=== PATIENT | female | born 1940 | race Caucasian/White ===

== ENCOUNTER 2019-02-09 19:45 | Inpatient (IN) | payer OTHER, MEDICARE ==
[2019-02-09 19:51] VITALS: BMI 25.7
--- NOTE | 2019-02-09 19:52 | PDOC ---
Rapid Medical Evaluation Chief Complaint: Altered Mental Status Medical Evaluation: Allergies Allergy/AdvReac Type Severity Reaction Status Date / Time No Known Drug Allergies Allergy Verified 02/09/19 19:47 02/09/19 19:50 I have performed a brief in-person evaluation of this patient. The patient presents with chief complaint of change in behavior since Saturday. As per daughter has a history of uti and usually has change in behavior with uti Patient with loss of appetite, not eating or drinking since this am Pertinent physical exam findings NAD even and unlabored breathing slow cautious gait, emotional in triage alert to name I have ordered the following iv, labs The patient will proceed to the Ed for further evaluation Discharge Disposition - Diagnosis Altered mental status - Referrals - Patient Instructions - Post Discharge Activity
--- NOTE | 2019-02-09 21:33 | PDOC ---
Attending Attestation - HPI HPI: 02/09/19 22:11 The patient is a 78 year old female, with a significant past medical history of CVA (4yrs ago) and dementia, who presents to the emergency department with, AMS. As per daughter at bedside, patient has been more combative over the past 3 days. She notes the patient normally behaves this way when she has a UTI. Patient is a poor historian thus, history was obtained via daughter at bedside. Allergies: NKDA Primary Care Physician: Dr. Mcpherson - Physicial Exam PE: 02/09/19 22:11 Agree with resident exam. <Ba Zhao - Last Filed: 02/09/19 22:11> - Resident Resident Name: Nina Reed - ED Attending Attestation I have performed the following: I have examined & evaluated the patient, The case was reviewed & discussed with the resident, I agree w/resident's findings & plan - Medical Decision Making 02/09/19 22:19 78-year-old female with increasing aggressive behavior the last 3-4 days brought in for concerns of medical cause by her daughter who is her primary caregiver Head CT, labs, EKG, chest x-ray If medically cleared family states they are okay with taking the patient home Disposition pending results <Laureen Shabazz - Last Filed: 02/09/19 22:21> Attestations - Attestations 02/09/19 22:12 Documentation prepared by Ba Zhao, acting as medical office assistant for Laureen Shabazz DO. <Ba Zhao - Last Filed: 02/09/19 22:11>
--- NOTE | 2019-02-09 21:40 | PDOC ---
History of Present Illness <Deann Camarillo - Last Filed: 02/10/19 00:15> - History of Present Illness Initial Comments: 02/09/19 21:39 Patient is a 78 y/o female with a history of CVA ( 4.5 yrs ago) and dementia who presents for altered mental status. Most of history is per patients daughter. Patient has been altered for the last few days for between 4-5 hours. She has been combative and unruly. Patient has had episodes of AMS in the past which have been mostly found to be related to UTI's. Between August and October she has had 3-4 UTI's. In October she was started on UTI prophylaxis. Patient has only had a corn muffin for breakfast and did not drink water today or urinate. Patient does not urinate very frequently and never complains of burning with urination. Per family she did not fall. She waxes and wanes out of her dementia with her baseline sometimes A & O x2 and sometimes A& O x0. Patient currently only complains of headache. 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) COPD: No CHF: No Dementia: Yes (early) Diabetes: No GI Disorders: No Disorders: No HTN: No Hypercholesterolemia: No Liver Disease: No Psychiatric Problems: Yes (depression/anxiety) Seizures: No Thyroid Disease: No - Surgical History Appendectomy: Yes Neurologic Surgery: Yes (CRANIOTOMY TO RELIEVE PRESSURE) - Suicide/Smoking/Psychosocial Hx Smoking History: Former smoker Have you smoked in the past 12 months: No If you are a former smoker, when did you quit?: 15 years ago Information on smoking cessation initiated: No Hx Alcohol Use: No Drug/Substance Use Hx: No Substance Use Type: None Hx Substance Use Treatment: No <Nina Reed - Last Filed: 02/10/19 04:41> - Past Medical History Allergies/Adverse Reactions: Allergies Allergy/AdvReac Type Severity Reaction Status Date / Time No Known Drug Allergies Allergy Verified 02/09/19 19:51 Home Medications: Ambulatory Orders Amlodipine Besylate [Norvasc -] 2.5 mg PO DAILY #30 tablet 10/05/14 Memantine HCl [Namenda -] 5 mg PO DAILY #60 10/05/14 Metoprolol Succinate [Toprol XL -] 25 mg PO DAILY #30 tab.sr.24h 10/05/14 Pramipexole Di-HCl [Mirapex ER] 1.5 mg PO HS #30 10/05/14 Melatonin 5 mg PO HS 02/10/19 Mv-Mn/Lutein/Zeax/Bilber/Hb277 [Macular Health Formula Capsule] 1 each PO BID Paroxetine HCl 40 mg PO DAILY 02/10/19 Venlafaxine HCl ER [Effexor Xr -] 37.5 mg PO DAILY 02/10/19 Venlafaxine HCl ER [Effexor Xr -] 75 mg PO DAILY 02/10/19 levETIRAcetam [Keppra Oral Solution -] 250 mg PO BID 02/10/19 Review of Systems - Review of Systems Able to Perform ROS?: No (patient dementia ) <Nina Reed - Last Filed: 02/10/19 04:41> *Physical Exam - Vital Signs Last Vital Signs Temp Pulse Resp BP Pulse Ox 98.2 F 78 20 135/81 96 02/09/19 19:48 02/09/19 19:48 02/09/19 19:48 02/09/19 19:48 02/09/19 19:48 <Deann Camarillo - Last Filed: 02/10/19 00:15> - Vital Signs Last Vital Signs Temp Pulse Resp BP Pulse Ox 98.2 F 78 20 135/81 96 02/09/19 19:48 02/09/19 19:48 02/09/19 19:48 02/09/19 19:48 02/09/19 19:48 - Physical Exam Comments: 02/09/19 21:50 GENERAL: Patient in distress, A& O x 1 HEART: RRR, no murmurs, rubs, or gallops LUNGS: CTAL B/L ABD: mildly tender, normoactive bowel sounds EXTREMITIES: 1+ pitting edema SKIN: no rashes or lesions noted <Nina Reed - Last Filed: 02/10/19 04:41> Moderate Sedation - Procedure Monitoring Vital Signs: Procedure Monitoring Vital Signs Temperature 98.2 F 02/09/19 19:48 Pulse Rate 78 02/09/19 19:48 Respiratory Rate 20 02/09/19 19:48 Blood Pressure 135/81 02/09/19 19:48 O2 Sat by Pulse Oximetry (%) 96 02/09/19 19:48 <Deann Camarillo - Last Filed: 02/10/19 00:15> - Procedure Monitoring Vital Signs: Procedure Monitoring Vital Signs Temperature 98.2 F 02/09/19 19:48 Pulse Rate 78 02/09/19 19:48 Respiratory Rate 20 02/09/19 19:48 Blood Pressure 135/81 02/09/19 19:48 O2 Sat by Pulse Oximetry (%) 96 02/09/19 19:48 <Nina Reed - Last Filed: 02/10/19 04:41> ED Treatment Course - LABORATORY CBC & Chemistry Diagram: 02/09/19 22:40 02/09/19 22:40 - ADDITIONAL ORDERS Additional order review: Laboratory Results 02/09/19 02/09/19 02/09/19 22:40 22:40 21:31 PT with INR 11.90 INR 1.01 PTT (Actin FS) 25.9 Sodium 143 Potassium 3.8 Chloride 111 H Carbon Dioxide 26 Anion Gap 6 L BUN 31 H Creatinine 1.1 Creat Clearance w eGFR 48.29 Random Glucose 89 Calcium 8.8 Total Bilirubin 0.5 AST 44 H ALT 23 Alkaline Phosphatase 52 Troponin I < 0.02 Total Protein 5.8 L Albumin 3.3 L Urine Color Yellow Urine Appearance Slcloudy Urine pH 5.0 Ur Specific [place] 1.020 Urine Protein 1+ H Urine Glucose (UA) Negative Urine Ketones 1+ H Urine Blood Negative Urine Nitrite Negative Urine Bilirubin Negative Urine Urobilinogen 2.0 H Ur Leukocyte Esterase 1+ H Urine WBC (Auto) 25 Urine RBC (Auto) 2 Ur Epithelial Cells Few Urine Mucus Rare 02/09/19 22:40 RBC 3.80 MCV 95.2 MCHC 34.6 RDW 13.5 MPV 8.4 Neutrophils % 62.2 D Lymphocytes % 25.3 D Monocytes % 9.8 D Eosinophils % 1.9 D Basophils % 0.8 D - Medications Given in the ED: ED Medications Discontinued Medications Generic Name Dose Route Start Last Admin Trade Name Lalo PRN Reason Stop Dose Admin Acetaminophen 1,000 mg 02/09/19 21:43 02/09/19 22:46 Ofirmev Injection - IVPB 02/09/19 21:44 1,000 mg ONCE ONE Administration <Deann Camarillo - Last Filed: 02/10/19 00:15> - LABORATORY CBC & Chemistry Diagram: 02/09/19 22:40 02/09/19 22:40 <Nina Reed - Last Filed: 02/10/19 04:41> *DC/Admit/Observation/Transfer - Discharge Dispostion Decision to Admit order: Yes <Deann Camarillo - Last Filed: 02/10/19 00:15> <Nina Reed - Last Filed: 02/10/19 04:41> Diagnosis at time of Disposition: Altered mental status Qualifiers: Altered mental status type: unspecified Qualified Code(s): R41.82 - Altered mental status, unspecified UTI (urinary tract infection) Qualifiers: Urinary tract infection type: acute cystitis Hematuria presence: without hematuria Qualified Code(s): N30.00 - Acute cystitis without hematuria - Discharge Dispostion Condition at time of disposition: Guarded
[2019-02-09] MEDS ORDERED: ACETAMINOPHEN 1000 MG/100 ML VIAL (NON FORMULARY) IVPB ONE (21:43)
[2019-02-09 22:00] LABS: URINE APPEARANCE SLCLOUDY; URINE BILIRUBIN NEGATIVE (<2.0 mg/dL); URINE COLOR YELLOW; URINE GLUCOSE (UA) NEGATIVE (NEGATIVE); URINE KETONE 1+ (NEGATIVE); URINE LEUK ESTERASE 1+ (NEGATIVE); URINE NITRITE NEGATIVE (NEGATIVE); URINE PROTEIN 1+ (NEGATIVE)
[2019-02-09 22:05] LABS: EPI CELLS FEW /HPF (FEW); URINE MUCUS RARE
[2019-02-09] MEDS ORDERED: ACETAMINOPHEN INJECTION 100 ML IVPB ONE (22:25)
[2019-02-09 22:47] LABS: BASO % 0.8 % (0-2.0); EOS % 1.9 % (0-4.5); HEMATOCRIT 36.2 % (32.4-45.2); HEMOGLOBIN 12.5 GM/dL (10.7-15.3); LYMPH % 25.3 % (8-40); MCHC 34.6 g/dl (32.0-36.0); MEAN CELL VOLUME 95.2 fl (80-96); MEAN PLT VOLUME 8.4 fl (7.5-11.1); MONO % 9.8 % (3.8-10.2); NEUT % 62.2 % (42.8-82.8); PLATELET COUNT 228 K/MM3 (134-434); RDW 13.5 % (11.6-15.6); WHITE BLOOD COUNT 4.8 K/mm3 (4.0-10.0)
[2019-02-09 22:58] LABS: INR 1.01 (0.83-1.09); PROTHROMBIN TIME (PATIENT) 11.9 SEC (9.7-13.0)
[2019-02-09 23:02] LABS: ACTIVATED PTT 25.9 SECONDS (25.2-36.5)
[2019-02-09 23:12] LABS: ALBUMIN 3.3 g/dl (3.4-5.0); ALK PHOS 52 U/L (45-117); ANION GAP 6 MMOL/L (8-16); BILIRUBIN,TOTAL 0.5 mg/dL (0.2-1); BLOOD UREA NITROGEN 31 mg/dL (7-18); CALCIUM 8.8 mg/dL (8.5-10.1); CHLORIDE 111 mmol/L (98-107); CO2 26 mmol/L (21-32); CREATININE 1.1 mg/dL (0.55-1.3); GLUCOSE,RANDOM 89 mg/dL (74-106); POTASSIUM 3.8 mmol/L (3.5-5.1); SGOT/AST 44 U/L (15-37); SGPT/ALT 23 U/L (13-61); SODIUM 143 mmol/L (136-145); TOT PROT 5.8 g/dl (6.4-8.2)
[2019-02-10] MEDS ORDERED: CEFTRIAXONE 1 GM in DEXTROSE 5%-WATER - 100 ML IVPB ONE (00:07)
[2019-02-10] MEDS ORDERED: CEFTRIAXONE 1 GM/50 ML BAG ONE (00:39)
--- NOTE | 2019-02-10 02:22 | HP ---
Admitting History and Physical - Primary Care Physician PCP: Judy Mcpherson - Admission Chief Complaint: AMS History of Present Illness: This is a 78 y/o woman from home with a past medical history of CVA (4.5 yrs ago ), Dementia. Who presents to the ED with her daughter for AMS. Patient has Dementia and is unable to provide HPI, the daughter was not at bedside. Per ED records: Most of history is per patients daughter. Patient has been altered for the last few days for between 4-5 hours. She has been combative and unruly. Patient has had episodes of AMS in the past which have been mostly found to be related to UTI's. Between August and October she has had 3-4 UTI's. In October she was started on UTI prophylaxis. Patient has only had a corn muffin for breakfast and did not drink water today or urinate. Patient does not urinate very frequently and never complains of burning with urination. Per family she did not fall. She waxes and wanes out of her dementia with her baseline sometimes A & O x2 and sometimes A& O x0. Patient currently only complains of headache. History Source: Family Member Limitations to Obtaining History: Dementia - Past Medical History ORDER ENTRY CLERK: Yes: CVA, Dementia (a) Psych: Yes: Anxiety, Depression, Other (Restless leg Syndr.) - Smoking History Smoking history: Former smoker Have you smoked in the past 12 months: No If you are a former smoker, when did you quit?: 15 years ago - Alcohol/Substance Use Hx Alcohol Use: No History of Substance Use: reports: None - Social History Usual Living Arrangement: Yes: With Child ADL: Family Assistance History of Recent Travel: No Home Medications - Allergies Allergies/Adverse Reactions: Allergies Allergy/AdvReac Type Severity Reaction Status Date / Time No Known Drug Allergies Allergy Verified 02/09/19 19:51 - Home Medications Home Medications: Ambulatory Orders Amlodipine Besylate [Norvasc -] 2.5 mg PO DAILY #30 tablet 10/05/14 Memantine HCl [Namenda -] 5 mg PO DAILY #60 10/05/14 Metoprolol Succinate [Toprol XL -] 25 mg PO DAILY #30 tab.sr.24h 10/05/14 Pramipexole Di-HCl [Mirapex ER] 1.5 mg PO HS #30 10/05/14 Melatonin 5 mg PO HS 02/10/19 Mv-Mn/Lutein/Zeax/Bilber/Hb277 [Macular Health Formula Capsule] 1 each PO BID Paroxetine HCl 40 mg PO DAILY 02/10/19 Venlafaxine HCl ER [Effexor Xr -] 37.5 mg PO DAILY 02/10/19 Venlafaxine HCl ER [Effexor Xr -] 75 mg PO DAILY 02/10/19 levETIRAcetam [Keppra Oral Solution -] 250 mg PO BID 02/10/19 Family Disease History - Family Disease History Family Disease History: Other: Sister (cva) Review of Systems Unable to obtain ROS, reason: Dementia Physical Examination Vital Signs: Vital Signs Temperature 98.2 F 02/09/19 19:48 Pulse Rate 78 02/09/19 19:48 Respiratory Rate 20 02/09/19 19:48 Blood Pressure 135/81 02/09/19 19:48 O2 Sat by Pulse Oximetry (%) 96 02/09/19 19:48 Constitutional: Yes: No Distress, Other (tearful) Eyes: Yes: WNL, Conjunctiva Clear, EOM Intact, PERRL HENT: Yes: WNL, Atraumatic, Normocephalic Neck: Yes: WNL, Supple, Trachea Midline Cardiovascular: Yes: WNL, Regular Rate and Rhythm, S1, S2 Respiratory: Yes: WNL, Regular, CTA Bilaterally Gastrointestinal: Yes: WNL, Normal Bowel Sounds, Soft ...Rectal Exam: Yes: Deferred Renal/: Yes: Incontinence Breast(s): Yes: WNL Musculoskeletal: Yes: WNL Extremities: Yes: WNL Edema: No Peripheral Pulses WNL: Yes Neurological: Yes: Alert, Confusion, Cran Nerves II-XII Intact ...Motor Strength: WNL Psychiatric: Yes: Alert Labs: CBC, BMP 02/09/19 22:40 02/09/19 22:40 Imaging - Results Chest X-ray: Image Reviewed Cat Scan: Image Reviewed Problem List - Problems (1) Acute metabolic encephalopathy Assessment/Plan: Likely secondary to UTI Head CT- neg ICH, no acute process Fall Precautions Neurochecks Code(s): G93.41 - METABOLIC ENCEPHALOPATHY (2) Altered mental status Assessment/Plan: See above Code(s): R41.82 - ALTERED MENTAL STATUS, UNSPECIFIED Qualifiers: Altered mental status type: unspecified Qualified Code(s): R41.82 - Altered mental status, unspecified (3) UTI (urinary tract infection) Assessment/Plan: UA- +1 protein, +1 ketones, +1 leukocyte esterase, +2 urobilinogen, 25 WBCs Urine Culture-pending Rocephin given in ED, will continue Monitor CBC, BMP Monitor vitals Code(s): N39.0 - URINARY TRACT INFECTION, SITE NOT SPECIFIED Qualifiers: Urinary tract infection type: acute cystitis Hematuria presence: without hematuria Qualified Code(s): N30.00 - Acute cystitis without hematuria (4) Dementia Assessment/Plan: Continue home meds Fall Precautions Code(s): F03.90 - UNSPECIFIED DEMENTIA WITHOUT BEHAVIORAL DISTURBANCE (5) CVA (cerebral vascular accident) Assessment/Plan: stable Continue home meds Code(s): I63.9 - CEREBRAL INFARCTION, UNSPECIFIED (6) Hypertension Assessment/Plan: stable Monitor BP Continue home meds Low Na Diet Monitor renal function Code(s): I10 - ESSENTIAL (PRIMARY) HYPERTENSION Assessment/Plan This is a 78 y/o woman with a PMhx of: Dementia, CVA, HTN, Former Smoker. Placed in Observation for Acute Metabolic Encephalopathy, AMS, UTI for further evaluation of their emergent condition. Plan: Will place in observation Monitor CBC, BMP Appreciate Neurology consult Head CT- Chest Xray- Fall Precautions Continue home meds FEN- PO fluids as tolerated, Replete lytes prn, Low Na Diet DVT ppx- OOB, SCDs, consider AC if LOS > 48 hrs Dispo: Observation Visit type - Emergency Visit Emergency Visit: Yes ED Registration Date: 02/09/19 Care time: The patient presented to the Emergency Department on the above date and was hospitalized for further evaluation of their emergent condition. - New Patient This patient is new to me today: Yes Date on this admission: 02/10/19 - Critical Care Critical Care patient: No
[2019-02-10 07:17] LABS: BASO % 0.6 % (0-2.0); EOS % 2.1 % (0-4.5); HEMATOCRIT 34.3 % (32.4-45.2); LYMPH % 27.8 % (8-40); MEAN CELL VOLUME 94.3 fl (80-96); MEAN PLT VOLUME 8.3 fl (7.5-11.1); MONO % 11.5 % (3.8-10.2); PLATELET COUNT 211 K/MM3 (134-434); RBC 3.64 M/mm3 (3.60-5.2); RDW 13.3 % (11.6-15.6); WHITE BLOOD COUNT 3.9 K/mm3 (4.0-10.0)
[2019-02-10 08:15] LABS: ANION GAP 8 MMOL/L (8-16); BLOOD UREA NITROGEN 33 mg/dL (7-18); CALCIUM 8.8 mg/dL (8.5-10.1); CHLORIDE 113 mmol/L (98-107); CO2 24 mmol/L (21-32); CREATININE 1.2 mg/dL (0.55-1.3); GLUCOSE,RANDOM 87 mg/dL (74-106); MAGNESIUM 2.3 mg/dL (1.8-2.4); POTASSIUM 3.6 mmol/L (3.5-5.1); SODIUM 145 mmol/L (136-145)
[2019-02-10] MEDS ORDERED: PARoxetine HCL 10 MG TABLET ONE (08:58)
--- NOTE | 2019-02-10 09:01 | PN ---
Progress Note (short form) - Note Progress Note: admitted for progressively worsening confusion and agitation frequent utis in past causing increased symptoms CBC, BMP 02/10/19 06:30 02/10/19 06:30 Vital Signs Period Temp Pulse Resp BP Sys/Luke Pulse Ox Last 24 Hr 97.3 F-98.2 F 69-78 18-20 130-148/60-84 96-98 s1s2 rrr lungs cta abd soft NT left hemiparesis-stable no edema pos. pulses oriented to place and person, crying uncontrollably, feels depressed UTI known h/o frontal lobe hemorrhagic cva, s/p craniotomy 2014 dementia long h/o depression even prior to cva since cva frequent uncontrolled crying spells iv abx until culture results PT eval request psychiatry and neurology eval for suggestion for medical optimization of her mental state has been on paxil/effexor/keppra/mirapex and namenda for years nuedexta was of no help
[2019-02-10] MEDS: levETIRAcetam 250 MG TABLET (FP) PO SCH ×2 (09:24→21:02)
[2019-02-10] MEDS: amLODIPine BESYLATE 2.5 MG TABLET (FP) PO SCH (09:25)
[2019-02-10] MEDS: metoPROLOL SUCCINATE 25 MG TAB.SR.24H (FP) PO SCH (09:25)
[2019-02-10] MEDS: PARoxetine HCL 20 MG TABLET PO SCH (09:36)
[2019-02-10] MEDS ORDERED: MEMANTINE HCL 5 MG TABLET (UD) PO SCH (10:00)
[2019-02-10] MEDS: VENLAFAXINE HCL 37.5 MG E.R. CAPSULE (FP) PO SCH (10:21)
[2019-02-10] MEDS: VENLAFAXINE HCL 75 MG E.R. CAPSULES (FP) PO SCH (10:21)
--- NOTE | 2019-02-10 10:41 | EKG ---
Test Reason : Blood Pressure : / mmHG Vent. Rate : 072 BPM Atrial Rate : 072 BPM P-R Int : 150 ms QRS Dur : 074 ms QT Int : 432 ms P-R-T Axes : 059 019 038 degrees QTc Int : 473 ms POOR DATA QUALITY, INTERPRETATION MAY BE ADVERSELY AFFECTED NORMAL SINUS RHYTHM NORMAL ECG WHEN COMPARED WITH ECG OF 29-SEP-2014 09:05, NO SIGNIFICANT CHANGE WAS FOUND Confirmed by Paul Vivar MD ([id number]) on 02/10/2019 10:41:41 AM Referred By: Confirmed By:Paul Vivar MD
[2019-02-10] MEDS ORDERED: ACETAMINOPHEN 325 MG TABLET (FP) PO PRN (11:47)
[2019-02-10] MEDS ORDERED: LORazepam 1 MG TABLET PO ONE (17:30)
--- NOTE | 2019-02-10 18:34 | CON.PSY ---
Psychiatry Consult Chief Complaint: 78 year old female with a long history of Major DEpressive Disorder and multiple Psych HOspitalizations. patient also has DEmentia ALZ. patient is being seen by Tsering ESPINOZA. Psychiatrist also sees a Psychologist as well. case discussed with Patiernts Son. Symptoms: reports: Depressed Mood, Memory Impairment, Disorganized/Disruptive Thoughts - Previous Psychiatric Treatment Outpatient: Less than 6 mos ago Inpatient: 2 or more prior admissions - Previous Substance Abuse Treatment Outpatient: None Inpatient: None - Reason for Previous Treatment Reason for Previous Treatment: Major Depression - Current Medications Current Medications: Active Medications Acetaminophen (Tylenol -) 650 mg PO Q6H PRN PRN Reason: PAIN 1-5 Last Admin: 02/10/19 11:52 Dose: 650 mg Amlodipine Besylate (Norvasc -) 2.5 mg PO DAILY [facility] Last Admin: 02/10/19 09:25 Dose: 2.5 mg Ceftriaxone Sodium 1 gm/ (Dextrose) 50 mls @ 100 mls/hr IVPB DAILY [facility]; Protocol Levetiracetam (Keppra -) 250 mg PO BID [facility] Last Admin: 02/10/19 09:24 Dose: 250 mg Memantine (Namenda -) 5 mg PO DAILY [facility] Last Admin: 02/10/19 09:25 Dose: 5 mg Metoprolol Succinate (Toprol Xl -) 25 mg PO DAILY [facility] Last Admin: 02/10/19 09:25 Dose: 25 mg Non-Formulary Medication (Pramipexole Di-Hcl [Mirapex Er]) 1.5 mg PO [facility] Paroxetine HCl (Paxil -) 40 mg PO DAILY [facility] Last Admin: 02/10/19 09:36 Dose: 40 mg Venlafaxine HCl (Effexor Xr -) 75 mg PO DAILY [facility] Last Admin: 02/10/19 10:21 Dose: 75 mg Venlafaxine HCl (Effexor Xr -) 37.5 mg PO DAILY [facility] Last Admin: 02/10/19 10:21 Dose: 37.5 mg - Allergies Allergies: Allergies Allergy/AdvReac Type Severity Reaction Status Date / Time No Known Drug Allergies Allergy Verified 02/09/19 19:51 - Current Living Status Usual Living Arrangement: With Significant Other - Current Mental Status Evaluation Appearance: Disheveled Attitude: Guarded - Affect Affect: Constrictive Appropriateness: Not Appropriate - Mood Mood: Irritable - Speech/Language Expressive: Delayed - Psychomotor Activity Psychomotor Activity: Hyperactive - Thought Process Thought Process: Circumstantial - Thought Content Hallucinations: Absent Delusions: Absent - Self Perception Self Perception: Depersonalization - Cognition Attention: Diminished Memory, Immediate Recall: Impaired Memory, Short Term: 1/3 Memory, Remote with Promptin/3 - Concentration Serial Sevens Intact: No Simple Calculations Intact: No - Abstraction Proverb Interpretation: Impaired Judgement: Moderately Impaired - Insight Insight: Impaired - Impulse Control Impulse Control: Minimally Impaired - Suicidal Ideation Suicidal Ideation: No - Homicidal Ideation Homicidal Ideation: No Assessment/Plan !)m Continue with Currant Antidepressants combination, no change in mEds Needed. patient has a long history of TReatmrnt Resistant DEpression.
--- NOTE | 2019-02-10 19:33 | CON.NEURO ---
Consult Consult Specialty:: NEUROLOGY-EDGARDO ALEXANDER - History of Present Illness History of Present Illness: This is a 78 y/o woman from home with a past medical history of CVA (4.5 yrs ago ), Dementia. Who presents to the ED with her daughter for AMS. Patient has Dementia and is unable to provide HPI, the daughter was not at bedside. Per ED records: Most of history is per patients daughter. Patient has been altered for the last few days for between 4-5 hours. She has been combative and unruly. Patient has had episodes of AMS in the past which have been mostly found to be related to UTI's. Between August and October she has had 3-4 UTI's. In October she was started on UTI prophylaxis. Patient has only had a corn muffin for breakfast and did not drink water today or urinate. Patient does not urinate very frequently and never complains of burning with urination. Per family she did not fall. She waxes and wanes out of her dementia with her baseline sometimes A & O x2 and sometimes A& O x0. Patient currently only complains of headache. She has a stable left hemiparesis-oriented to place and person, crying uncontrollably, feels depressed-this has been ocurring for a long time since frontal hge.H/o frontal lobe hemorrhagic cva, s/p craniotomy 2013,dementia,long h/o depression even prior to cva, since cva has uncontrolled crying spells-has been rx. with neudexta for PSA. Ms. Yee appeared calm, states she has no headache, it was"mild' and resolved on its own, that she feels better in that "i dont feel depressed", the uncontrolled crying she says occurs"occasionally". Denies all other complaints. - Past Medical History VASCULAR NURSE: Yes: CVA, Dementia (a) Psych: Yes: Anxiety, Depression, Other (Restless leg Syndr.) - Alcohol/Substance Use Hx Alcohol Use: No History of Substance Use: reports: None - Smoking History Smoking history: Former smoker Have you smoked in the past 12 months: No If you are a former smoker, when did you quit?: 15 years ago - Social History Usual Living Arrangement: With Significant Other ADL: Family Assistance History of Recent Travel: No Home Medications - Allergies Allergies/Adverse Reactions: Allergies Allergy/AdvReac Type Severity Reaction Status Date / Time No Known Drug Allergies Allergy Verified 02/09/19 19:51 - Home Medications Home Medications: Ambulatory Orders Amlodipine Besylate [Norvasc -] 2.5 mg PO DAILY #30 tablet 10/05/14 Memantine HCl [Namenda -] 5 mg PO DAILY #60 10/05/14 Metoprolol Succinate [Toprol XL -] 25 mg PO DAILY #30 tab.sr.24h 10/05/14 Pramipexole Di-HCl [Mirapex ER] 1.5 mg PO HS #30 10/05/14 Melatonin 5 mg PO HS 02/10/19 Mv-Mn/Lutein/Zeax/Bilber/Hb277 [Macular Health Formula Capsule] 1 each PO BID Paroxetine HCl 40 mg PO DAILY 02/10/19 Venlafaxine HCl ER [Effexor Xr -] 37.5 mg PO DAILY 02/10/19 Venlafaxine HCl ER [Effexor Xr -] 75 mg PO DAILY 02/10/19 levETIRAcetam [Keppra Oral Solution -] 250 mg PO BID 02/10/19 Family Disease History - Family Disease History Family Disease History: Other: Sister (cva) Physical Exam-Neuro Vital Signs: Vital Signs Temperature 98.3 F 02/10/19 14:43 Pulse Rate 74 02/10/19 14:43 Respiratory Rate 18 02/10/19 14:43 Blood Pressure 143/78 02/10/19 14:43 O2 Sat by Pulse Oximetry (%) 96 02/10/19 10:11 Labs: CBC, BMP 02/10/19 06:30 02/10/19 06:30 INR, PTT INR 1.01 (0.83-1.09) 02/09/19 22:40 - Neuro Exam Level Of Consciousness: Yes: Alert (oriented x 2) Eyes: Yes: HELDER Mini Mental Exam: Impaired attention/concentration, memory-0/3 in 5 mns. Her affect is inappropriately effusive, minimal spontaneous laughter. Mood appears better than documented in chart. Cranial Nerves II-XII Intact: No (old left stefan.facial, + Morrisons sign/snout reflex(frontal release signs)) DTR's: 0 Left Brachioradialis, 0 Right Brachioradialis, 1+ Left Tricep, 1+ Right Tricep, 2+ Left Bicep, 2+ Right Bicep, 2+ Right Achilles, 3+ Left Achilles Babinski: Present (left upgoing toe) Response to light touch: Normal Response to pain prick: Normal Motor Strength: 4/5: Left Arm, Left Leg, 5/5: Right Arm, Right Leg Gait: Other (slight left hemiparetic gait) Assessment/Plan Pt. 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 She is also on Keppra, unclear indication. Suggest: Ativan 0.5mg po/IM prn agitation q 6hrs Can add Risperdal 0.5mg hs to target agitation and increase to 1mg hs if needed. This may augment her antidx. rx.too. Consider d/cing Keppra, this may at times add to mood lability and replace with Depakote 250mg bid x 7 days than increase to 250mg am and 500mg hs -this may target PSP and mood lability/agitation but it should be started after her delirium clears completely. Thank you, Evi Horowitz MD
[2019-02-10] MEDS: MEMANTINE HCL 5 MG TABLET (UD) PO SCH (21:02)
[2019-02-10] MEDS: PRAMIPEXOLE DI HCL 1.5 MG PO SCH (21:26)
[2019-02-10] MEDS ORDERED: risperiDONE 0.25 MG TABLET (FP) PO SCH (22:00)
[2019-02-10] MEDS: LORazepam 1 MG TABLET PO PRN (22:01)
[2019-02-10] MEDS ORDERED: HALOPERIDOL LACTATE 5 MG/ML IM ONE (22:30)
[2019-02-11] MEDS ORDERED: amLODIPine BESYLATE 2.5 MG TABLET (FP) PO ONE (02:14)
[2019-02-11] MEDS: LORazepam 1 MG TABLET PO PRN (02:39)
[2019-02-11] MEDS: VENLAFAXINE HCL 75 MG E.R. CAPSULES (FP) PO SCH (10:26)
[2019-02-11] MEDS: VENLAFAXINE HCL 37.5 MG E.R. CAPSULE (FP) PO SCH (10:26)
[2019-02-11] MEDS: PARoxetine HCL 20 MG TABLET PO SCH (10:26)
[2019-02-11] MEDS ORDERED: cefTRIAXone SODIUM 1 GM VIAL ONE (10:42)
[2019-02-11] MEDS ORDERED: DEXTROSE 5%-WATER - 50 ML IVPB ONE (10:42)
[2019-02-11] MEDS: amLODIPine BESYLATE 2.5 MG TABLET (FP) PO SCH (11:12)
[2019-02-11] MEDS: levETIRAcetam 250 MG TABLET (FP) PO SCH ×2 (11:13→22:10)
[2019-02-11] MEDS: MEMANTINE HCL 5 MG TABLET (UD) PO SCH ×2 (11:13→22:09)
[2019-02-11] MEDS: metoPROLOL SUCCINATE 25 MG TAB.SR.24H (FP) PO SCH (11:14)
[2019-02-11] MEDS: CEFTRIAXONE 1 GM in DEXTROSE 5%-WATER - 50 ML IVPB SCH (11:14)
--- NOTE | 2019-02-11 14:52 | PN ---
Progress Note (short form) - Note Progress Note: very agitated and restless, abusive yesterday evening received risperdal and ativan, however today very somnolent, falls asleep, difficult to wake Vital Signs Period Temp Pulse Resp BP Sys/Luke Pulse Ox Last 24 Hr 97.9 F-98.5 F 75-92 18-20 128-159/66-123 96-96 s1s2 rrr lungs cta abd soft NT left hemiparesis-stable no edema pos. pulses somnolent but arousable, does not follow commands UTI known h/o frontal lobe hemorrhagic cva, s/p craniotomy 2013 dementia long h/o depression even prior to cva since cva frequent uncontrolled crying spells iv abx until culture results PT eval consults appreciated trial seroquel dc planning tomorrow if mentation improves
[2019-02-11] MEDS ORDERED: QUEtiapine FUMARATE 25 MG TABLET (FP) PO SCH (22:00)
[2019-02-11] MEDS: PRAMIPEXOLE DI HCL 1.5 MG PO SCH (22:10)
--- NOTE | 2019-02-12 09:24 | DS ---
Physical Examination Vital Signs: Vital Signs Temperature 97.5 F L 02/12/19 05:00 Pulse Rate 71 02/12/19 05:00 Respiratory Rate 18 02/12/19 05:00 Blood Pressure 154/76 02/12/19 05:00 O2 Sat by Pulse Oximetry (%) 96 02/11/19 22:00 Constitutional: Yes: No Distress, Calm Eyes: Yes: EOM Intact HENT: Yes: Normocephalic Neck: Yes: Trachea Midline Cardiovascular: Yes: Regular Rate and Rhythm Respiratory: Yes: CTA Bilaterally Gastrointestinal: Yes: Normal Bowel Sounds, Soft Edema: No Peripheral Pulses WNL: Yes Neurological: Yes: Pre-Existing Deficit (left hemiparesis) Labs: CBC, BMP 02/10/19 06:30 02/10/19 06:30 Discharge Summary Reason For Visit: UTI Current Active Problems Acute metabolic encephalopathy (Acute) Altered mental status (Acute) CVA (cerebral vascular accident) (Acute) Dementia (Acute) UTI (urinary tract infection) (Acute) Hospital Course: admitted for delirium, agitation with underlying dementia/depression/anxiety and h/o CVA. ct head was stable, ua showed uti. was given iv abx, seen by neuro and psychiatric consultation. added seroquel. mentation got better, back to baseline. medically stable to dc home and f/up as oupt. Condition: Fair - Instructions Disposition: [facility]/HOME HEALTH CARE - Home Medications Comprehensive Discharge Medication List: Ambulatory Orders Amlodipine Besylate [Norvasc -] 2.5 mg PO DAILY #30 tablet 10/05/14 Metoprolol Succinate [Toprol XL -] 25 mg PO DAILY #30 tab.sr.24h 10/05/14 Pramipexole Di-HCl [Mirapex ER] 1.5 mg PO HS #30 10/05/14 Mv-Mn/Lutein/Zeax/Bilber/Hb277 [Macular Health Formula Capsule] 1 each PO BID Paroxetine HCl 40 mg PO DAILY 02/10/19 Venlafaxine HCl ER [Effexor Xr -] 37.5 mg PO DAILY 02/10/19 Venlafaxine HCl ER [Effexor Xr -] 75 mg PO DAILY 02/10/19 levETIRAcetam [Keppra Oral Solution -] 250 mg PO BID 02/10/19 LORazepam [Ativan] 0.5 mg PO DAILY #7 tablet MDD 1 02/12/19 Memantine HCl [Namenda -] 5 mg PO BID tab 02/12/19 Quetiapine Fumarate [Seroquel -] 25 mg PO HS 30 Days #30 tablet 02/12/19
[2019-02-12] MEDS ORDERED: DEXTROSE 5%-WATER - 50 ML IVPB ONE (11:46)
[2019-02-12] MEDS ORDERED: PARoxetine HCL 10 MG TABLET ONE (11:46)
[2019-02-12] MEDS ORDERED: cefTRIAXone SODIUM 1 GM VIAL ONE (11:46)
[2019-02-12] MEDS: CEFTRIAXONE 1 GM in DEXTROSE 5%-WATER - 50 ML IVPB SCH (12:09)
[2019-02-12] MEDS: amLODIPine BESYLATE 2.5 MG TABLET (FP) PO SCH (12:10)
[2019-02-12] MEDS: metoPROLOL SUCCINATE 25 MG TAB.SR.24H (FP) PO SCH (12:10)
[2019-02-12] MEDS: MEMANTINE HCL 5 MG TABLET (UD) PO SCH (12:10)
[2019-02-12] MEDS: levETIRAcetam 250 MG TABLET (FP) PO SCH (12:11)
[2019-02-12] MEDS: VENLAFAXINE HCL 75 MG E.R. CAPSULES (FP) PO SCH (12:11)
[2019-02-12] MEDS: VENLAFAXINE HCL 37.5 MG E.R. CAPSULE (FP) PO SCH (12:11)
[2019-02-12] MEDS: PARoxetine HCL 20 MG TABLET PO SCH (12:12)
[2019-02-12 13:33] VITALS: BP 128/78; PULSE 103; TEMP 98.7
== END 2019-02-12 15:36 | disposition home health service (06) | DRG 689 ==
LOC: JER 19:45 → JERBED 02-10 03:22 → J7W 02-10 05:53 → OBSVTOIN 02-11 14:55
PROVIDERS: ADMIT Internal Medicine; ATTEND Internal Medicine
DX: N39.0 Urinary tract infection, site not specified (principal); G93.41 Metabolic encephalopathy; G81.94 Hemiplegia, unspecified affecting left nondominant side; G12.29 Other motor neuron disease; I10 Essential (primary) hypertension; F41.8 Other specified anxiety disorders; G25.81 Restless legs syndrome; R41.0 Disorientation, unspecified; F01.50 Vascular dementia, unspecified severity, without behavioral disturbance, psychotic disturbance, mood disturbance, and anxiety; Z86.73 Personal history of transient ischemic attack (TIA), and cerebral infarction without residual deficits; Z87.891 Personal history of nicotine dependence
CPT/HCPCS: 36415; 70450-TC; 71045-TC-FY; 80048; 80053; 81003; 81015; 82607; 82962; 83605; 83735; 84443; 84484; 85025; 85610; 85730; 87040; 87086; 93005; 93010; 97116-GP; 97161-GP; 99284-25; G0378; J0131